=== PATIENT | male | born 1960 | race Caucasian/White ===

== ENCOUNTER 2017-11-29 08:57 | Outpatient (CLI) | payer BC ==
[2017-11-29 09:15] LABS: BASOPHILS % 0.4 (0.0-1.5); EOSINOPHILS % 2.7 % (0.0-6.8); MEAN CORPUSCULAR HEMOGLOBIN 31.7 pg (28.0-34.0); MONOCYTES % 3.4 % (0.0-11.0); NEUTROPHILS # 3.3 # k/uL (1.4-7.7)
[2017-11-29 09:45] LABS: eGFR (African) > 60; eGFR (Non-African) > 60
== END 2017-11-29 14:11 ==
LOC: LAB 08:57
PROVIDERS: ATTEND Family Medicine
DX: Z00.00 Encounter for general adult medical examination without abnormal findings (principal); Z12.5 Encounter for screening for malignant neoplasm of prostate
CPT/HCPCS: 36415; 80053; 80061; 84153; 85025

== ENCOUNTER 2018-12-31 08:59 | Outpatient (CLI) | payer BC ==
[2018-12-31 09:41] LABS: eGFR (Non-African) > 60
[2018-12-31 09:42] LABS: HDL 43 mg/dL (>40)
== END 2018-12-31 09:03 ==
LOC: LAB 08:59
PROVIDERS: ATTEND Family Medicine
DX: Z00.00 Encounter for general adult medical examination without abnormal findings (principal)
CPT/HCPCS: 36415; 80053; 80061; 84153